=== PATIENT | female | born 2000 | race Caucasian/White ===

== ENCOUNTER 2022-11-15 14:35 | Emergency (ER) | payer OTHER ==
[2022-11-15] MEDS ORDERED: LORazepam 1 MG Tab PO ONE (15:12)
[2022-11-15] MEDS ORDERED: Acetaminophen 325 MG Tab PO ONE (15:12)
[2022-11-15] MEDS ORDERED: Acetaminophen 500 MG Tab PO ONE (15:19)
== END 2022-11-15 16:45 | disposition home or self-care (01) ==
LOC: LB.ED 14:35
DX: S00.12XA Contusion of left eyelid and periocular area, initial encounter (principal); W50.0XXA Accidental hit or strike by another person, initial encounter
CPT/HCPCS: 70450; 70486; 99281; 99283; A9270-GY